=== PATIENT | female | born 1965 | race Caucasian/White ===

== ENCOUNTER 2022-08-10 13:52 | Emergency (ER) | payer OTHER ==
--- NOTE | 2022-08-10 15:19 | RAD REPORT ---
EXAM DESCRIPTION: Karthik Single View08/10/2022 3:06 pm CLINICAL HISTORY: PALPITATIONS COMPARISON: Chest Pa And Lat (2 Views) dated 02/12/2017 TECHNIQUE: Portable AP view of the chest. FINDINGS: Mildly progressive central interstitial prominence. Small left pleural effusion, years to be progressive as well. No pneumothorax. The cardiomediastinal contours are unchanged. IMPRESSION: Mild progression of central interstitial prominence and left-sided effusion. Findings ma y relate to worsening pulmonary edema.
--- NOTE | 2022-08-10 15:26 | RAD REPORT ---
EXAM DESCRIPTION: US - Extrem Venous W Compress Jose - 08/10/2022 2:53 pm CLINICAL HISTORY: Swelling COMPARISON: None. TECHNIQUE: Real-time sonographic evaluation of the bilateral lower extremity deep venous systems was performed. FINDINGS: Normal compressibility, flow augmentation, phasic flow and spontaneous flow is identified in both the left and right lower extremity deep venous systems. No intraluminal filling defects seen. IMPRESSION: No DVT in either lower extremity.
[2022-08-10 17:31] LABS: Absolute Lymphocytes (CBC) 1.5 K/uL (0.7-4.9); Hematocrit 37.9 % (36.0-45.0); MPV 8.3 fL (7.6-11.3); RBC Red Blood Cell Count 4.68 M/uL (3.86-4.86)
[2022-08-10 17:59] LABS: Potassium 3.2 mEq/L (3.5-5.1)
[2022-08-10 18:01] LABS: Troponin High Sensitivity 10.7 pg/mL (<58.9)
--- NOTE | 2022-08-10 18:32 | EDPHYS ---
Physician Documentation [facility] Name: Es Mack Age: 57 yrs Sex: Female : 1965 Arrival Date: 08/10/2022 Time: 13:52 Bed 8 Private MD: ED Physician Leif Tellez HPI: 08/10 17:00 This 57 yrs old Female presents to ER via Ambulatory with complaints of Leg Swelling - rn BILATERAL. 17:00 Leg swelling. Onset: The symptoms/episode began/occurred at an unknown time. Severity rn of symptoms: At their worst the symptoms were moderate in the emergency department the symptoms are unchanged. The patient has experienced similar episodes in the past. The patient has not recently seen a physician. Pt reports leg swelling "for some time", recently seems to have gotten worse, sits at work, swelling improves a lot at night and with leg elevation. Also reports intermittent sob and palpitations. No current sob or palpitations. No chest pain. No abd pain. No hx of dvt/PE. . Historical: - Allergies: 14:02 No Known Allergies; mb9 - Home Meds: 14:02 None [Active]; mb9 - PMHx: 14:02 None; mb9 - PSHx: 14:02 Total abdominal hysterectomy; mb9 - Immunization history:: Adult Immunizations up to date. - Social history:: Smoking status: Patient denies any tobacco usage or history of. - Family history:: not pertinent. - Hospitalizations: : No recent hospitalization is reported. ROS: 17:00 Constitutional: Negative for fever, chills, and weight loss, Eyes: Negative for injury, rn pain, redness, and discharge, Neck: Negative for injury, pain, and swelling, Cardiovascular: Negative for chest pain Respiratory: Negative for cough, wheezing, and pleuritic chest pain, Abdomen/GI: Negative for abdominal pain, nausea, vomiting, diarrhea, and constipation, MS/Extremity: + lower ext swelling Skin: Negative for injury, rash, and discoloration, Neuro: Negative for headache, weakness, numbness, tingling, and seizure. Exam: 16:26 ECG was reviewed by the Attending Physician. rn 17:00 Constitutional: This is a well developed, well nourished patient who is awake, alert, rn and in no acute distress. Head/Face: Normocephalic, atraumatic. Cardiovascular: Regular rate and rhythm. No pulse deficits. Respiratory: No increased work of breathing, no retractions or nasal flaring. Skin: Warm, dry, no cellulitis MS/ Extremity: Pulses equal, no cyanosis. Neurovascular intact. Full, normal range of motion. Equal circumference. Neuro: Awake and alert, GCS 15 Vital Signs: 14:00 BP 159 / 78; Pulse 85; Resp 20; Temp 97.9; Pulse Ox 97% ; Weight 115.67 kg; Height 5 mb9 ft. 3 in. ; Pain 0/10; 16:33 BP 205 / 106; Pulse 75; Resp 17; Pulse Ox 98% ; bp 18:30 BP 148 / 104; Pulse 71; Resp 24; Pulse Ox 97% ; bp 14:00 Body Mass Index 45.17 (115.67 kg, 160.02 cm) mb9 14:00 Pain Scale: Adult mb9 MDM: 14:05 Patient medically screened. rn 18:31 ED course: Patient signed out pending BNP and troponin which were negative I discussed bs3 at length with the patient she needs out patient primary care will start on amlodipine we discussed the swelling side effect strongly advised to follow-up ALEJO for blood pressure and further work-up. 18:36 Data reviewed: vital signs, nurses notes. bs3 08/10 14:21 Order name: Basic Metabolic Panel; Complete Time: 18:02 rn 08/10 14:21 Order name: CBC with Diff; Complete Time: 17:48 rn 08/10 14:21 Order name: NT PRO-BNP; Complete Time: 18:02 rn 08/10 14:21 Order name: Troponin HS; Complete Time: 18:02 rn 08/10 14:21 Order name: XRAY Chest (1 view); Complete Time: 15:30 rn 08/10 14:21 Order name: Extrem Venous W Compression Jose US; Complete Time: 15:30 rn 08/10 14:21 Order name: EKG; Complete Time: 14:22 rn 08/10 14:21 Order name: Cardiac monitoring; Complete Time: 16:25 rn 08/10 14:21 Order name: EKG - Nurse/Tech; Complete Time: 16:25 rn 08/10 14:21 Order name: IV Saline Lock; Complete Time: 16: rn 08/10 14:21 Order name: Labs collected and sent; Complete Time: 16:25 rn 08/10 14:21 Order name: O2 Per Protocol; Complete Time: 16: rn 08/10 14:21 Order name: O2 Sat Monitoring; Complete Time: 16: rn EC: Rate is 73 beats/min. Rhythm is regular. QRS [place] is Normal. IN interval is normal. QRS rn interval is normal. QT interval is normal. No Q waves. T waves are Normal. No ST changes noted. Clinical impression: Normal ECG. Interpreted by me. Reviewed by me. Administered Medications: No medications were administered Disposition Summary: 08/10/22 18:32 Discharge Ordered Location: Home bs3 Problem: new bs3 Symptoms: have improved bs3 Condition: Stable bs3 Diagnosis - Essential (primary) hypertension bs3 - Lymphedema, not elsewhere classified bs3 Followup: bs3 - With: Private Physician - When: 1 week - Reason: Re-evaluation by your physician Discharge Instructions: - Discharge Summary Sheet bs3 - Hypertension, Adult bs3 - Lymphedema bs3 Forms: - Work release form bs3 - Medication Reconciliation Form bs3 - Thank You Letter bs3 - Antibiotic Education bs3 - Prescription Opioid Use bs3 Prescriptions: - amlodipine 10 mg Oral tablet - take 1 tablet by ORAL route daily; 30 tablet; Refills: 0, Product Selection bs3 Permitted Signatures: Dispatcher [employer] Ho Silver MD MD rn Stein, Brandon, MD MD bs3 Joslyn Etienne, RN RN mb9
--- NOTE | 2022-08-10 18:32 | ER ---
Nurse's Notes [facility] Name: Es Mack Age: 57 yrs Sex: Female : 1965 Arrival Date: 08/10/2022 Time: 13:52 Bed 8 Private MD: Diagnosis: Essential (primary) hypertension;Lymphedema, not elsewhere classified Presentation: 08/10 14:00 Chief complaint: Patient states: "The past two days, both of my feet started swelling mb9 up. This has happened on and off for the past 6 months and thought it was too much salt, which I cut down on. I've had SOB for the past month, fatigue, and feel like my heart is going real fast for a few seconds and goes back to normal". Coronavirus screen: Vaccine status: Patient reports being unvaccinated. Ebola Screen: No symptoms or risks identified at this time. Initial Sepsis Screen: Does the patient meet any 2 criteria? No. Patient's initial sepsis screen is negative. Does the patient have a suspected source of infection? No. Patient's initial sepsis screen is negative. Risk Assessment: Do you want to hurt yourself or someone else? Patient reports no desire to harm self or others. Onset of symptoms was August 10, 2022. 14:00 Method Of Arrival: Ambulatory mb9 14:00 Acuity: JAQUI 3 mb9 Triage Assessment: 14:03 General: Appears uncomfortable, Behavior is cooperative, anxious. Pain: Denies pain. mb9 Neuro: Lewis Agitation-Sedation Scale (RASS): 0 - Alert and Calm Level of Consciousness is awake, alert, obeys commands, Oriented to person, place, time, situation, Appropriate for age. Cardiovascular: Reports shortness of breath, Patient's skin is warm and dry. Cardiovascular: Denies chest pain, shortness of breath. Respiratory: Reports shortness of breath Airway is patent Respiratory effort is even, unlabored, Respiratory pattern is regular, symmetrical. GI: Patient currently denies nausea. Derm: Skin is pink, warm \\T\\ dry. Musculoskeletal: Range of motion: intact in all extremities, Swelling present in right leg and left leg. Historical: - Allergies: 14:02 No Known Allergies; mb9 - Home Meds: 14:02 None [Active]; mb9 - PMHx: 14:02 None; mb9 - PSHx: 14:02 Total abdominal hysterectomy; mb9 - Immunization history:: Adult Immunizations up to date. - Social history:: Smoking status: Patient denies any tobacco usage or history of. - Family history:: not pertinent. - Hospitalizations: : No recent hospitalization is reported. Screenin:39 [facility] ED Fall Risk Assessment (Adult) History of falling in the last 3 months, bp including since admission No falls in past 3 months (0 pts). Abuse screen: Denies threats or abuse. Denies injuries from another. Nutritional screening: No deficits noted. Tuberculosis screening: No symptoms or risk factors identified. Assessment: 14:05 General: SEE TRIAGE NOTE. bp 16:00 Reassessment: No changes from previously documented assessment. Patient is alert, bp oriented x 3, equal unlabored respirations, skin warm/dry/pink. 18:00 Reassessment: No changes from previously documented assessment. Patient is alert, bp oriented x 3, equal unlabored respirations, skin warm/dry/pink. 18:47 Reassessment: [place] HOME AMBULATORY. bp Vital Signs: 14:00 BP 159 / 78; Pulse 85; Resp 20; Temp 97.9; Pulse Ox 97% ; Weight 115.67 kg; Height 5 mb9 ft. 3 in. ; Pain 0/10; 16:33 BP 205 / 106; Pulse 75; Resp 17; Pulse Ox 98% ; bp 18:30 BP 148 / 104; Pulse 71; Resp 24; Pulse Ox 97% ; bp 14:00 Body Mass Index 45.17 (115.67 kg, 160.02 cm) mb9 14:00 Pain Scale: Adult mb9 ED Course: 13:57 Patient arrived in ED. kj1 14:02 Triage completed. mb9 14:02 Arm band placed on. mb9 14:05 Ho Sanchez MD is Attending Physician. rn 14:55 Extrem Venous W Compression Jose US In Process Unspecified. EDMS 15:08 XRAY Chest (1 view) In Process Unspecified. EDMS 15:30 Carmelina Peralta, RABIA is Primary Nurse. ph 17:00 Inserted saline lock: 22 gauge in right antecubital area, using aseptic technique. bp Blood collected. 17:13 Attending Physician role handed off by Ho Sanchez MD bs3 17:13 Leif Tellez MD is Attending Physician. bs3 18:41 Patient has correct armband on for positive identification. Bed in low position. Call bp light in reach. Side rails up X2. 18:41 No provider procedures requiring assistance completed. IV discontinued, intact, bp bleeding controlled, No redness/swelling at site. Pressure dressing applied. Administered Medications: No medications were administered Outcome: 18:32 Discharge ordered by . bs3 18:47 Patient left the ED. bp Signatures: Dispatcher [employer] EDMS Ho Sanchez MD MD rn Hall, Patricia RN RN Hemant Mas, RN RN bp James, Eugenie kraft1 Leif Tellez MD MD bs3 Joslyn Etienne RN RN mb9
[2022-08-10 19:15] VITALS: TEMP 97.9
[2022-08-10 19:17] VITALS: BP 148/104; O2SAT 97
--- NOTE | 2022-08-11 12:08 | EKG ---
Test Date: 2022-08-10 Test Time: 16:10:37 Dry Wall Applicator: BP MEASUREMENT RESULTS: Intervals: Rate: 73 AL: 146 QRSD: 72 QT: 406 QTc: 447 [place]: P: 49 AL: 146 QRS: 16 T: 34 INTERPRETIVE STATEMENTS: Normal sinus rhythm with sinus arrhythmia Normal ECG Compared to ECG 07/13/2006 12:29:46 No significant changes Electronically Signed On 08-11-22 12:06:01 CDT by Cj Giles
== END 2022-08-10 18:47 | disposition home or self-care (01) ==
LOC: ER 13:52
DX: I89.0 Lymphedema, not elsewhere classified (principal); I10 Essential (primary) hypertension
CPT/HCPCS: 36415; 71045; 80048; 83880; 84484; 85025; 93005; 93970; 99283

== ENCOUNTER 2023-02-17 16:38 | Emergency (ER) | payer OTHER ==
--- OUTSIDE RECORDS SUMMARY | 2023-02-17 16:40 | XMS REPORT | Continuity of Care Document ---
Author Name Unknown Address [address] [facility] [address] thconnect Address [address] [facility] [address] [place] [address] Care Team Providers Care Fretted Instruments Inspector Name Role Phone ZAK COKER Attending Clinician Unava MIKHAIL Morgan Attending Clinician Unavailable LAB90 Attending Clinician Unavailable Payers Payer Name Policy Type Policy Number Effective Date Expirati on Date Source [employer]EFIT PLAN 2 [id number] 2022 00:00:00 Social History Social Habit Start Date Stop Date Quantity Comments Source Gender identity Ban Christy - External Sexual orientation Chencho Christy - External Alcohol intake 2022-10-10 00:00:00 2022-10-10 00:00:00 Lifetime non-drinker (finding) Víctor Christy - External History of Social function 2022-09-12 00:00:00 2022-09-12 00:00:00 Víctor Christy - External Sex Assigned At 1965 00:00:00 1965 00:00:00 Víctor Christy - External Smoking Status Start Date Stop Date Source Never smoked tobacco Víctor Christy - External Medications Ordered Medication Name Filled Medication Name Start Date Stop Date Current Medication? Ordering Clinician Indication Dosage Frequency Signature (SIG) Comments Components Source hydroCHLORO thiazide 12.5 MG oral Capsule 10-10 00:00: 00 Yes [id number] 12.5mg Take 1 capsule (12.5 mg total) by mouth daily Víctor king Trazodone HCl 50 MG oral Tablet 10-10 00:00: 00 Yes [id number] 50mg Take 1 tablet (50 mg total) by mouth nightly Víctor king Amlodipine Besylate 10 MG oral Tablet 10-10 00:00: 00 Yes [id number] 10mg Take 1 tablet (10 mg total) by mouth daily Víctor king Amlodipine Besylate 10 MG oral Tablet 09-12 00:00: 00 Yes [id number] 10mg Take 1 tablet (10 mg total) by mouth daily Víctor king Amlodipine Besylate 10 MG oral Tablet 09-12 00:00: 00 10-10 00:00 :00 No [id number] 10mg Take 1 tablet (10 mg total) by mouth daily Víctor king Amlodipine Besylate 10 MG oral Tablet 08-11 00:00: 00 09-12 00:00 :00 No 10mg Take 1 tablet (10 mg total) by mouth daily Víctor king Vital Signs Vital Name Observation Time Observation Value Comments S ource Systolic blood pressure 2022-10-10 14:31:00 142 mm[Hg] Víctor daly - External Diastolic blood pressure 2022-10-10 14:31:00 68 mm[Hg] Víctor daly - External Heart rate 2022-10-10 14:31:00 83 /min Kip Christy - External Body temperature 2022-10-10 14:31:00 36.28 Lindsey Víctor Christy - External Respiratory rate 2022-10-10 14:31:00 18 /min Víctor Christy - External Body height 2022-10-10 14:31:00 157.5 cm Ban Christy - External Body weight 2022-10-10 14:31:00 132.995 kg Ban Christy - External BMI 2022-10-10 14:31:00 53.63 kg/m2 Ban Christy - External Oxygen saturation in Arterial blood by Pulse oximetry 2022-10-10 14:31:00 98 /min Víctor Vo ld - External Systolic blood pressure 2022-09-12 17:05:00 138 mm[Hg] Víctor Holmano ld - External Diastolic blood pressure 2022-09-12 17:05:00 62 mm[Hg] Víctor Holmano ld - External Heart rate 2022-09-12 17:05:00 90 /min Kip Holmanold - External Body temperature 2022-09-12 17:05:00 37.22 Lindsey Víctor Keitaybold - External Respiratory rate 2022-09-12 17:05:00 15 /min Víctor Holmanold - External Body height 2022-09-12 17:05:00 157.5 cm Ban house Seybold - External Body weight 2022-09-12 17:05:00 136.986 kg Ban house Seybold - External BMI 2022-09-12 17:05:00 55.24 kg/m2 Ban house Seybold - External Encounters Start Date/Time End Date/Time Encounter Type Admission Type Attending [facility] Care Department Encounter ID Source 2022-12-29 00:00:00 2022-12-29 00:00:00 Outpatient ZAK COKER [id number] Víctor Christy 2022-12-12 09:45:00 2022-12-12 09:45:00 Outpatient ZAK COKER [id number] Víctor florin 2022-12-07 00:00:00 2022-12-07 00:00:00 Outpatient ZAK COKER [id number] Víctor Christy 2022-11-15 10:30:00 2022-11-15 10:30:00 Outpatient MIKHAIL MILLAN [id number] Víctor Keitaybsaji 2022-11-07 09:45:00 2022-11-07 09:45:00 Outpatient ZAK COKER [id number] Víctor Keitaybsaji 2022-10-25 00:00:00 2022-10-25 00:00:00 [facility] [id number] [facility]-10-[facility] 00:00:00 2022-10-25 00:00:00 Outpatient ZAK COKRE VÍCTOR [id number] Víctor Chirsty 2022-10-14 00:00:00 2022-10-14 00:00:00 Outpatient ZAK COKER VÍCTOR [id number] Víctor Christy 2022-10-12 00:00:00 2022-10-12 00:00:00 Outpatient ZAK COKER VÍCTOR [id number] Víctor Keitasaji 2022-10-12 00:00:00 2022-10-12 00:00:00 Outpatient ZAK COKER VÍCTOR [id number] Víctor Christy 2022-10-12 00:00:00 2022-10-12 00:00:00 Outpatient ZAK COKER [facility]CTOR [id number] [facility] 2022-10-10 10:30:00 2022-10-10 10:30:00 Outpatient LAB90 VÍCTOR VÍCTOR [id number] V[facility]ctor [facility] 2022-10-10 09:45:00 2022-10-10 09:45:00 Outpatient ZAK COKER VÍCTOR [id number] Víctor Keitasaji 2022-10-03 08:30:00 2022-10-03 08:30:00 Outpatient ZAK COKER VÍCTOR [id number] Víctor Christy 2022-09-12 11:45:00 2022-09-12 11:45:00 Outpatient JOHN PAULZAK ABURTO VÍCTOR RENEE [id number] [facility] Notes Date/Time Note Provider Source 2022-10-10 09:35:33 [id number]:35:33F ormatting of this note might be different from the original.Patient is here for physical, no other concerns voiced at this time, BP 142/68, HR 83, medications reconciled. [id number] [id number]:36:12Nurse [id number] for patient [id number] NoteLNOrthopaedic Hospital [facility]27[facility].[id number] [facility]"
[2023-02-17] MEDS ORDERED: ONDANSETRON 4 MG (ODT) TAB ONE (18:28)
--- NOTE | 2023-02-17 19:06 | ER ---
Nurse's Notes [facility] Name: Es Mack Age: 58 yrs Sex: Female : 1965 Arrival Date: 02/17/2023 Time: 16:38 Bed 15 Private MD: Diagnosis: Nausea with vomiting, unspecified Presentation: 02/17 16:49 Chief complaint: Patient states: Nausea and vomiting onset yesterday. Pt states that cm10 she just doesn't feel well. Pt denies fever, cough and diarrha. Coronavirus screen: Vaccine status: Patient reports being unvaccinated. Client denies travel out of the [place] in the last 14 days. Ebola Screen: Patient denies travel to an Ebola-affected area in the 21 days before illness onset. No symptoms or risks identified at this time. Initial Sepsis Screen: Does the patient meet any 2 criteria? No. Patient's initial sepsis screen is negative. Does the patient have a suspected source of infection? No. Patient's initial sepsis screen is negative. Risk Assessment: Do you want to hurt yourself or someone else? Patient reports no desire to harm self or others. Onset of symptoms was February 17, 2023. 16:49 Method Of Arrival: Ambulatory cm10 16:49 Acuity: JAQUI 3 cm10 Triage Assessment: 19:28 General: Appears in no apparent distress. comfortable. General: Behavior is calm, nj1 cooperative, appropriate for age. Pain: Denies pain. GI: Patient currently denies nausea. Historical: - Allergies: 16:51 No Known Allergies; cm10 - PMHx: 16:51 Hypertensive disorder; Diabetes mellitus; cm10 - PSHx: 16:51 Total abdominal hysterectomy; cm10 - Immunization history:: Adult Immunizations unknown. - Social history:: Smoking status: Patient denies any tobacco usage or history of. - Family history:: not pertinent. Screenin:27 [facility] ED Fall Risk Assessment (Adult) Score/Fall Risk Level 0 - 2 = Low Risk nj1 Oriented to surroundings, Maintained a safe environment, Hourly rounding (assess needs \T\ fall precautionary measures) done. Abuse screen: Denies threats or abuse. Denies injuries from another. Nutritional screening: No deficits noted. Tuberculosis screening: No symptoms or risk factors identified. Assessment: 18:11 Reassessment: Pt states that she would not like to do labs at this time and only have cm10 the flu swab done. Provider aware. 19:27 Reassessment: Patient appears in no apparent distress at this time. Patient is alert, nj1 oriented x 3, equal unlabored respirations, skin warm/dry/pink. Patient denies pain at this time. Patient states feeling better. Patient states symptoms have improved. 19:28 GI: nj1 Vital Signs: 16:49 Pulse 84; Resp 16; Temp 97.5; Pulse Ox 100% on R/A; Weight 108.86 kg; Height 5 ft. 3 cm10 in. ; Pain 0/10; 16:51 BP 134 / 71; cm10 19:25 BP 144 / 80; Pulse 78; Resp 18; Pulse Ox 96% ; nj1 16:49 Body Mass Index 42.51 (108.86 kg, 160.02 cm) cm10 16:49 Pain Scale: Adult cm10 ED Course: 16:40 Patient arrived in ED. mg5 16:47 Frederick Bennett MD is Attending Physician. rt 16:51 Triage completed. cm10 16:51 Arm band placed on Patient placed in waiting room. cm10 18:11 Influenza Screen (a \T\ B) Sent. cm10 19:07 Jazmine Valdez, RABIA is Primary Nurse. nj1 19:28 No provider procedures requiring assistance completed. Patient did not have IV access nj1 during this emergency room visit. 19:31 Patient has correct armband on for positive identification. Bed in low position. Call nj1 light in reach. Provided Education on: discharge instructions. Administered Medications: 18:14 CANCELLED (Duplicate Order): ondansetron 4 mg IVP once; over 2 minutes cm10 18:14 Drug: Ondansetron Oral Disintegrating Tablet Oral Disintegrating Tablet 4 mg PO once cm10 Route: PO; 19:32 Follow up: Response: Nausea is decreased nj1 18:59 Not Given (Patient Refused): ns 0.9% 1000 ml IV at 1 bolus Per protocol; 1000 mL bolus cm10 Medication: 19:32 VIS not applicable for this client. nj1 Outcome: 19:06 Discharge ordered by . rt 19:29 Discharged to home ambulatory, nj1 19:29 Condition: stable 19:29 Discharge instructions given to patient, Instructed on discharge instructions, follow up and referral plans. medication usage, Demonstrated understanding of instructions, follow-up care, medications, Prescriptions given X 1, 19:33 Patient left the ED. nj1 Signatures: Frederick Bennett MD MD rt Jaco, Norma RN RN nj1 Alyssa Jose RN RN cm10 Nicolle Pierre mg5
--- NOTE | 2023-02-17 19:07 | EDPHYS ---
Physician Documentation [facility] Name: Es Mack Age: 58 yrs Sex: Female : 1965 Arrival Date: 02/17/2023 Time: 16:38 Bed 15 Private MD: ED Physician Frederick Bennett HPI: 02/17 17:04 This 58 yrs old Female presents to ER via Ambulatory with complaints of Vomiting. rt 17:04 Patient presents to the ED with nausea, vomiting, generally not feeling well since rt yesterday. Denies any overt abdominal pain, acute complaints. Is able to tolerate liquids, not solids. Symptoms are moderate in severity, no other aggravating or alleviating factors. Historical: - Allergies: 16:51 No Known Allergies; cm10 - PMHx: 16:51 Hypertensive disorder; Diabetes mellitus; cm10 - PSHx: 16:51 Total abdominal hysterectomy; cm10 - Immunization history:: Adult Immunizations unknown. - Social history:: Smoking status: Patient denies any tobacco usage or history of. - Family history:: not pertinent. ROS: 17:04 Cardiovascular: Negative for chest pain, palpitations, and edema, Respiratory: Negative rt for shortness of breath, cough, wheezing, and pleuritic chest pain, MS/Extremity: Negative for injury and deformity, Skin: Negative for injury, rash, and discoloration, Neuro: Negative for headache, weakness, numbness, tingling, and seizure, Psych: Negative for depression, anxiety, suicide ideation, homicidal ideation, and hallucinations, 17:04 Constitutional: Positive for malaise, Negative for body aches, 17:04 Abdomen/GI: Positive for nausea and vomiting, Negative for abdominal pain, diarrhea, constipation, Exam: 17:04 Constitutional: This is a well developed, well nourished patient who is awake, alert, rt and in no acute distress. Head/Face: Normocephalic, atraumatic. Chest/axilla: Normal chest wall appearance and motion. Nontender with no deformity. No lesions are appreciated. Cardiovascular: Regular rate and rhythm with a normal S1 and S2. No gallops, murmurs, or rubs. Normal PMI, no JVD. No pulse deficits. Respiratory: Lungs have equal breath sounds bilaterally, clear to auscultation and percussion. No rales, rhonchi or wheezes noted. No increased work of breathing, no retractions or nasal flaring. Abdomen/GI: Soft, non-tender, with normal bowel sounds. No distension or tympany. No guarding or rebound. No evidence of tenderness throughout. Skin: Warm, dry with normal turgor. Normal color with no rashes, no lesions, and no evidence of cellulitis. MS/ Extremity: Pulses equal, no cyanosis. Neurovascular intact. Full, normal range of motion. Neuro: Awake and alert, GCS 15, oriented to person, place, time, and situation. Cranial nerves II-XII grossly intact. Motor strength 5/5 in all extremities. Sensory grossly intact. Cerebellar exam normal. Normal gait. Psych: Awake, alert, with orientation to person, place and time. Behavior, mood, and affect are within normal limits. 18:16 ECG was reviewed by the Attending Physician. rt Vital Signs: 16:49 Pulse 84; Resp 16; Temp 97.5; Pulse Ox 100% on R/A; Weight 108.86 kg; Height 5 ft. 3 cm10 in. ; Pain 0/10; 16:51 BP 134 / 71; cm10 19:25 BP 144 / 80; Pulse 78; Resp 18; Pulse Ox 96% ; nj1 16:49 Body Mass Index 42.51 (108.86 kg, 160.02 cm) cm10 16:49 Pain Scale: Adult cm10 MDM: 16:52 Patient medically screened. rt 19:51 Differential diagnosis: Gastroenteritis, electrolyte disturbance, nausea, vomiting. rt Data reviewed: vital signs, nurses notes, lab test result(s). Test considered but Not performed: Labs: Recommended the patient obtain labs, she declines this. She has decision-making capacity. Symptoms are improved and Zofran administration. Patient will forego labs at this time, will return for worsening symptoms or new concerning symptoms.. Counseling: I had a detailed discussion with the patient and/or guardian regarding the historical points, exam findings, and any diagnostic results supporting the discharge/admit diagnosis, lab results, the need for outpatient follow up, to return to the emergency department if symptoms worsen or persist or if there are any questions or concerns that arise at home. Response to treatment: the patient's symptoms have markedly improved after treatment. 02/17 16:58 Order name: Influenza Screen (a \T\ B); Complete Time: 19:01 rt 1208 16:58 Order name: EKG; Complete Time: 16:58 rt 1208 16:58 Order name: EKG - Nurse/Tech; Complete Time: 18:11 rt EC:16 Rate is 76 beats/min. Rhythm is regular, Normal Sinus Rhythm with No ectopy. QRS Foster rt is Normal. MS interval is normal. QRS interval is normal. QT interval is normal. No Q waves. T waves are Normal. No ST changes noted. Interpreted by me. Administered Medications: 18:14 CANCELLED (Duplicate Order): ondansetron 4 mg IVP once; over 2 minutes cm10 18:14 Drug: Ondansetron Oral Disintegrating Tablet Oral Disintegrating Tablet 4 mg PO once cm10 Route: PO; 19:32 Follow up: Response: Nausea is decreased nj1 18:59 Not Given (Patient Refused): ns 0.9% 1000 ml IV at 1 bolus Per protocol; 1000 mL bolus cm10 Disposition Summary: 02/17/23 19:06 Discharge Ordered Notes: Location: Home rt Problem: new rt Symptoms: have improved rt Condition: Stable rt Diagnosis - Nausea with vomiting, unspecified rt Followup: rt - With: Private Physician - When: 2 - 3 days - Reason: Discharge Instructions: - Discharge Summary Sheet rt - Nausea and Vomiting, Adult rt Forms: - Medication Reconciliation Form rt - Thank You Letter rt - Antibiotic Education rt - Prescription Opioid Use rt - Patient Portal Instructions rt - Leadership Thank You Letter rt - Work release form nj1 Prescriptions: - ondansetron 4 mg Oral Tablet,disintegrating - take 1 tablet ORAL route every 6 hours; 18 tablet; Refills: 0, Product rt Selection Permitted Signatures: Dispatcher [employer] Frederick Solomon MD MD rt Alyssa Jose RN RN cm10 Jazmine Valdez RN nj1 Corrections: (The following items were deleted from the chart) 18:14 16:58 Ondansetron IVP 4 mg IVP once; over 2 minutes ordered. rt cm10
[2023-02-17 19:39] VITALS: TEMP 97.5
[2023-02-17 19:40] VITALS: BP 144/80; O2SAT 96
--- NOTE | 2023-02-21 13:55 | EKG ---
Test Date: 2023-02-17 Test Time: 18:12:01 [employer]: ML MEASUREMENT RESULTS: Intervals: Rate: 76 IL: 144 QRSD: 82 QT: 412 QTc: 463 [place]: P: [place]: 144 QRS: 122 T: 139 INTERPRETIVE STATEMENTS: Normal sinus rhythm Low voltage QRS Lateral infarct, age undetermined Abnormal ECG Compared to ECG 08/10/2022 16:10:37 Low QRS voltage now present Myocardial infarct finding now present Sinus arrhythmia no longer present Electronically Signed On 02-21-23 13:43:18 [facility]IS by Ronni Hamilton
== END 2023-02-17 19:33 | disposition home or self-care (01) ==
LOC: ER 16:38
DX: R11.2 Nausea with vomiting, unspecified (principal); R53.81 Other malaise; E11.9 Type 2 diabetes mellitus without complications; I10 Essential (primary) hypertension
CPT/HCPCS: 93005; 87804 ×2; 99283; Q0162